=== PATIENT | male | born 1975 | race Two or more races ===

== ENCOUNTER 2025-05-11 13:31 | Outpatient (AMB) | payer MEDICAID, SELFPAY ==
[2025-05-11 14:00] VITALS: BP 119/75; PULSE 63; RESP 18; TEMP 36.6; O2SAT 98; BMI 27.3
--- NOTE | 2025-05-11 14:00 | GSCOFFNT_ITS ---
[facility] - [facility] 05/11/25 14:00 Height 1.68 m Height Method Measured Weight 76.799 kg Weight Measurement Method Standing Scale BMI 27.3 BP 119/75 Blood Pressure Source Automatic Cuff Blood Pressure Location Left Upper Arm Position Sitting Respiration 18 Pulse 63 Pulse Source Monitor Temp 97.8 F Temp Source Temporal Artery Scan Pulse Oximetry (%) 98 Oxygen Delivery Method Room Air Med/Allergies Allergies & Medications Allergies No Known Allergies Allergy (Verified 05/11/25 14:36) Medication Reconciliation Unobtainable 05/11/25 [History Confirmed 05/11/25] MA Intake Visit Data Collection PCP or OBGYN visit in last 3 months: Yes Smoking Status Smoking Status: Unknown if ever smoked Immunization / Flu Flu Vaccine in the Last 12 Months: Yes Flu Vaccine Exclusion Criteria: Already Received Past Medical History Social History SMOKING STATUS: Smoking status: Unknown if ever smoked HPI HPI Narrative HISTORY OF PRESENT ILLNESS I, Mariia Schaefer, have obtained verbal consent from the patient, to be recorded during this encounter which may include, but not limited to, medical history, examination, treatment plans, and relevant health information.? Patient was informed that recording will be read and reviewed by myself before inclusion in the medical chart. The patient presents for a screening colonoscopy. He is accompanied by a black and white printer operator. He has never undergone a colonoscopy before. He reports no recent changes in bowel movements or the presence of blood in his stool. He has experienced weight loss, which he attributes to the recent passing of his brothers. Apart from this, he feels healthy and maintains normal energy levels. He has difficulty sleeping but is managing it with medication. He is currently on medication for prediabetes and takes vitamins. He reports no family history of colon or rectal cancer. PMH: Pre-DM PSHx: Denies Meds: Trazodone, vitamin D Allergies: Azithromycin Family hx: No known colon or rectal CA ROS Review of Systems Systems Reviewed: All systems reviewed, normal except as documented Objective/Exam General General Appearance: alert, cooperative and well groomed Resp Respiratory exam: Absent respiratory distress Assessment & Plan Diagnosis / Problem List (1) Encounter for screening colonoscopy: Status: Acute Assessment & Plan: A screening colonoscopy is recommended as a preventive measure against colon cancer. A comprehensive packet detailing the procedure, including dietary restrictions and medication regimen, was provided. Abstain from solid food intake the day prior to the procedure and avoid certain foods in the days leading up to it. The procedure will be performed under sedation, ensuring comfort throughout. Potential risks associated with the procedure, such as bleeding and colon perforation, have been discussed. If polyps are removed, some bleeding may occur but typically resolves on its own. In the rare event of colon perforation, emergency surgery would be required. Pt expressed understanding and is agreeable to proceeding Office Procedures GNS Level of Care Nursing/Assessment Patient Status: Initial/New Patient Nursing Assessment/Reassesment: Medication Reconciliation, Update PMH in EMR and Vital Signs Coordination of Care: Complex Care and Chronic Disease 1-5, Consent,records obtained, informed consent, Education Simp Pt/Fam, Results/Orders obtained and Staff clarify orders Special Needs: Language special needs New Patient Charge New Patient Point Assignment: [id number] New Patient Point Charge: MACHINE STEMMER Level 3 ([id number]) Patient Portal Questionaires Social History Tobacco History Smoking Status: Unknown if ever smoked Review of Systems Report any current symptoms Only answer those that you have currently: Past Medical History Past Medical History Have you ever been diagnosed with any of the following:
== END 2025-05-11 14:38 | disposition home or self-care (01) ==
LOC: HODSRG 13:31
PROVIDERS: PCP Nurse Practitioner Family; Referring Provider Nurse Practitioner Family; Supervising Provider Surgery; Visit Provider Surgery
DX: Z12.11 Encounter for screening for malignant neoplasm of colon (principal); R73.03 Prediabetes
CPT/HCPCS: 99203; G0463

== ENCOUNTER 2025-06-22 07:55 | Day surgery (SDC) | payer MEDICAID, SELFPAY ==
[2025-06-19 13:04] VITALS: BMI 29.5
[2025-06-22] VITALS (11 sets, daily range): BP systolic 108–143; BP diastolic 72–88; PULSE 60–78; RESP 11–18; TEMP 36.5–36.8; O2SAT 98–100; BMI 29.3
[2025-06-22] MEDS: RINGERS LACTATED 500 ML 500 ML 20 ML IV (09:38)
[2025-06-22] MEDS: MIDAZOLAM INJ 1 MG/ML VIAL 2 ML (ASD USE ONLY) 2 MG IVP (09:46)
[2025-06-22] MEDS: fentaNYL CIT INJ 50 mCg/ML AMP 2ML (ASD USE ONLY) IVP (09:48)
== END 2025-06-22 10:35 | disposition home or self-care (01) ==
PROVIDERS: PCP Nurse Practitioner Family; Referring Provider Surgery; Visit Provider Surgery
PROC: 0DBE8ZX Excision of Large Intestine, Via Natural or Artificial Opening Endoscopic, Diagnostic (ICD-10-PCS; CPT 45380; principal; 2025-06-22 09:45)
DX: Z12.11 Encounter for screening for malignant neoplasm of colon (principal); D12.3 Benign neoplasm of transverse colon; K64.8 Other hemorrhoids
CPT/HCPCS: 45380; A4649; J1200; J2250; J3010; J7120

== ENCOUNTER 2025-07-06 13:03 | Outpatient (AMB) | payer MEDICAID, SELFPAY ==
[2025-07-06 13:18] VITALS: BP 112/77; PULSE 88; RESP 18; TEMP 36.6; O2SAT 98; BMI 29.5
--- NOTE | 2025-07-06 13:18 | GSCOFFNT_ITS ---
[facility] 07/06/25 13:18 Height 1.63 m Height Method Measured Weight 78.613 kg Weight Measurement Method Standing Scale BMI 29.5 BP 112/77 Blood Pressure Source Automatic Cuff Blood Pressure Location Left Upper Arm Position Sitting Respiration 18 Pulse 88 Pulse Source Monitor Temp 97.8 F Temp Source Temporal Artery Scan Pulse Oximetry (%) 98 Oxygen Delivery Method Room Air Med/Allergies Allergies & Medications Allergies No Known Allergies Allergy (Verified 07/06/25 13:19) Medication Reconciliation ergocalciferol (vitamin D2) 1,250 mcg (50,000 unit) capsule 50,000 unit PO QDAY 06/19/25 [History Confirmed 07/06/25] hydroxyzine HCl 25 mg tablet 25 mg PO QDAY 06/19/25 [History Confirmed 07/06/25] trazodone 50 mg tablet 50 mg PO .qhs 06/19/25 [History Confirmed 07/06/25] MA Intake Visit Data Collection New Patient or Established: Established Patient (seen at [facility] within 3 years) Seen by Clinical Staff ONLY (RN/MA): No Reason for Visit:: COLONOSCOPY F/U Pain Present Currently: No Pain Scale Used: White-Odom/Numerical Diving Judge Required: Yes PCP or OBGYN visit in last 3 months: Yes Hx Now: No Do You Feel Safe at Home: Yes Authorities Contacted: N/A Smoking Status Smoking Status: Never smoker Immunization / Flu Flu Vaccine in the Last 12 Months: Yes Flu Vaccine Exclusion Criteria: Already Received Past Medical History Past Medical History NEUROLOGIC: Negative Neurological Disorders or Seizures CARDIAC: Negative Cardiac Disorders or Congestive Heart Failure RESPIRATORY: Negative Chronic Obstructive Pulmonary Disease (COPD) GASTROINTESTINAL: Negative Gastrointestinal Disorders GENITOURINARY: Negative Genitourinary Disorders or Renal Disease ENDOCRINE: Negative Diabetes Mellitus Type 1 OTHER HISTORY: Negative Blood Transfusion Reaction or Anesthesia Reactions Social History SMOKING STATUS: Smoking status: Never smoker ALCOHOL: Alcohol Intake: Current HPI HPI Narrative Spoke to pt with in-person sales support engineer 49M who presented for screening colonoscopy 06/22 here for results. He reports feeling well overall with no complaints ROS Review of Systems Systems Reviewed: All systems reviewed, normal except as documented Objective/Exam General General Appearance: alert, cooperative and well groomed Resp Respiratory exam: Absent respiratory distress Results Colonoscopy and pathology reports reviewed Assessment & Plan Diagnosis / Problem List (1) Encounter to discuss colonoscopy results: Status: Acute Assessment & Plan: 49M s/p screening colonoscopy 06/2025 with findings of one tubular adenoma <1cm, recommended to have surveillance in 7 years. All questions were answered and pt expressed understanding Office Procedures GNS Level of Care Nursing/Assessment Patient Status: Established Patient Nursing Assessment/Reassesment: Medication Reconciliation, Update PMH in EMR and Vital Signs Coordination of Care: Complex Care and Chronic Disease 1-5, Education Complex Pt/Fam, Consent,records obtained, informed consent, Results/Orders obtained and Staff clarify orders Special Needs: Language special needs Established Patient Charge Established Patient Point Assignment: 95 Established Patient Point Charge: EP Level 3 (80-115) Patient Portal Questionaires Social History Tobacco History Smoking Status: Never smoker Alcohol History Alcohol Intake: Current Domestic Abuse History Do You Feel Safe at Home: Yes Review of Systems Report any current symptoms Only answer those that you have currently: Past Medical History Past Medical History Have you ever been diagnosed with any of the following: Neurological Problems Seizures: No Cardiology Problems Congestive Heart Failure: No Respiratory Problems Chronic Obstructive Pulmonary Disease (COPD): No Genital/Urinary Problems Renal Disease: No Endocrine Problems Diabetes Mellitus Type 1: No Other Problems Blood Transfusion Reaction: No Anesthesia Reactions: No
== END 2025-07-06 13:31 | disposition home or self-care (01) ==
LOC: HODSRG 13:03
PROVIDERS: PCP Nurse Practitioner Family; Referring Provider Nurse Practitioner Family; Supervising Provider Surgery; Visit Provider Surgery
DX: Z71.2 Person consulting for explanation of examination or test findings (principal); D12.6 Benign neoplasm of colon, unspecified
CPT/HCPCS: 99213; G0463